=== PATIENT | female | born 1975 | race Caucasian/White ===

== ENCOUNTER → 2020-12-24 | Outpatient (CLI) | payer MEDICAID ==
[2020-12-24 18:48] LABS: Basophils # (A) 0.06 X 10*3/uL (0.00-0.10); Basophils % (A) 0.8 %; Eosinophils # (A) 0.11 X 10*3/uL (0.04-0.35); Eosinophils % (A) 1.6 %; HCT 42.8 % (37.2-46.3); HGB 13.9 g/dL (12.0-15.0); Lymphocytes # (A) 2.88 X 10*3/uL (0.90-5.00); Lymphocytes % (A) 40.7 %; MCH 27.8 pg (27.0-32.0); MCHC 32.5 g/dL (32.0-37.0); MCV 85.6 fL (80.0-97.0); Mean Platelet Volume 10.3 fL (9.5-12.2); Monocytes # (A) 0.59 X 10*3/uL (0.20-1.00); Monocytes % (A) 8.3 %; Neutrophils # (A) 3.43 X 10*3/uL (1.80-7.70); Neutrophils % (A) 48.5 %; Platelet Count 332 X 10*3/uL (140-440); RDW 12.4 % (11.5-14.5); WBC 7.08 X 10*3/uL (4.50-10.00)
[2020-12-24 23:22] LABS: African American GFR (CKD) 129.4 (60.0-200.0); Albumin 4.2 g/dL (3.80-4.90); Albumin/Globulin Ratio 1.5 (1.60-3.17); Anion Gap 10.3 mmol/L (4.00-12.00); BUN/Creat Ratio 16.67 Ratio (12.00-20.00); Calcium 8.7 mg/dL (8.7-10.3); Carbon Dioxide 23.7 mmol/L (21.6-31.8); Chol/HDL Ratio 3.53; Globulin 2.8 g/dL (1.6-3.3); Non-African American GFR(CKD) 111.6 (60.0-200.0); Potassium 3.8 mmol/L (3.5-5.5); Total Bilirubin 0.5 mg/dL (0.3-1.2)
== END | disposition home or self-care (01) ==
LOC: LABWHC1 11:57
PROVIDERS: ATTEND Internal Medicine
DX: Z00.00 Encounter for general adult medical examination without abnormal findings (principal)
CPT/HCPCS: 36415; 80053; 80061; 84443; 85025

== ENCOUNTER 2021-01-26 19:14 | Emergency (ER) | payer MEDICAID ==
[2021-01-26 19:26] VITALS: TEMP 98.3
[2021-01-26] MEDS ORDERED: SODIUM CHLORIDE 0.9% 500 ML 500 ML IV STA (20:09)
--- NOTE | 2021-01-26 20:21 | ED ---
General Adult HPI - General Chief complaint: Neuro Symptoms/Deficit Stated complaint: Numbness of face/tongue Time Seen by Provider: 01/26/21 19:57 Source: patient, RN notes reviewed Mode of arrival: wheelchair Limitations: no limitations - History of Present Illness Initial comments: 45-year-old female presents to the emergency room for a chief complaint of facial numbness. Patient reports she has had right-sided facial numbness and tongue numbness for the past 11 hours. States this started at 9 AM. Patient states that she also has pain in the back of her head and neck and does have a history of migraines although this numbness is not typical for her. She thought maybe a migraine was coming on. Patient states she "feels weird" in her right arm but it does not feel weak or numb. Patient denies any difficulty speaking. Denies any difficulty walking. 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 Patient denies any daily medications. Denies chest pain back pain or shortness of breath.Patient has no other complaints at this time including shortness of breath, chest pain, abdominal pain, nausea or vomiting, or visual changes. - Related Data Home Medications Medication Instructions Recorded Confirmed Cetirizine HCl [Zyrtec] 10 mg PO DAILY 01/26/21 01/26/21 Allergies Allergy/AdvReac Type Severity Reaction Status Date / Time sulfamethoxazole Allergy Unknown Verified 01/26/21 21:27 [From Bactrim] trimethoprim [From Bactrim] Allergy Unknown Verified 01/26/21 21:27 Review of Systems ROS Statement: Those systems with pertinent positive or pertinent negative responses have been documented in the HPI. ROS Other: All systems not noted in ROS Statement are negative. Past Medical History Past Medical History: No Reported History History of Any Multi-Drug Resistant Organisms: None Reported Past Surgical History: Orthopedic Surgery Additional Past Surgical History / Comment(s): LEFT KNEE SURGERY Past Psychological History: No Psychological Hx Reported Smoking Status: Never smoker Past Alcohol Use History: Occasional Past Drug Use History: None Reported General Exam Limitations: no limitations General appearance: alert, in no apparent distress Head exam: Present: atraumatic, normocephalic, normal inspection Eye exam: Present: normal appearance, PERRL, EOMI. Absent: scleral icterus, conjunctival injection, periorbital swelling ENT exam: Present: normal exam, mucous membranes moist Neck exam: Present: normal inspection, tenderness (Right-sided cervical muscle tenderness), full ROM. Absent: meningismus, lymphadenopathy Respiratory exam: Present: normal lung sounds bilaterally. Absent: respiratory distress, wheezes, rales, rhonchi, stridor Cardiovascular Exam: Present: regular rate, normal rhythm, normal heart sounds. Absent: systolic murmur, diastolic murmur, rubs, gallop, clicks GI/Abdominal exam: Present: soft, normal bowel sounds. Absent: distended, tenderness, guarding, rebound, rigid Neurological exam: Present: alert, oriented X3, normal gait, other (GCS 15) Expanded Patient oriented to: Present: person, place, time Speech: Present: fluid speech Cranial nerves: EOM's Intact: Normal, Tongue Deviation: Normal, Facial Sensation: Normal Cerebellar function: Finger to Nose: Normal Upper motor neuron: Pronator Drift: Normal Sensory exam: Upper Extremity Light Touch: Normal (No drift), Upper Extremity Pin Prick: Normal (No drift), Lower Extremity Light Touch: Normal (No drift), Lower Extremity Pin Prick: Normal (No drift) Motor strength exam: RUE: 5, LUE: 5, RLE: 5, LLE: 5 Eye Response: (4) open spontaneously Motor Response: (6) obeys commands Verbal Response: (5) oriented [place] Total: 15 Course Vital Signs 01/26/21 19:23 Temperature 98.3 F Pulse Rate 91 Respiratory 16 Rate Blood Pressure 142/82 O2 Sat by Pulse 100 Oximetry - Reevaluation(s) Reevaluation #1: 01/26/211999 patient also visualized and examined by Dr. Littlejohn EKG Findings - EKG Comments: EKG Findings:: Normal sinus rhythm, ventricular rate 91, VT interval 150, QTc 442 Medical Decision Making - Medical Decision Making Vitals are stable. No focal neurologic deficits on exam. NIH is 0. Patient does have reproducible right-sided neck pain. Patient also evaluated by Dr. Littlejohn. CBC CMP is unremarkable. Troponin is negative. EKG shows a normal sinus rhythm. CT angios head and neck was obtained which was negative. Patient reevaluated. No worsening of symptoms. At this time no focal neurologic deficits and patient is stable for outpatient follow-up. This could be related to cervical radiculopathy or, clicks migraine patient does have a headache and pain in the low head and neck. She will follow up primary care. If she has any worsening symptoms she'll return to the emergency room. - Lab Data Result diagrams: 01/26/21 20:17 01/26/21 20:17 Lab Results 01/26/21 01/26/21 01/26/21 Range/Units 20:17 20:17 20:17 WBC 11.7 H (3.8-10.6) k/uL RBC 5.50 H (3.80-5.40) m/uL Hgb 15.8 (11.4-16.0) gm/dL Hct 47.1 H (34.0-46.0) % MCV 85.6 (80.0-100.0) fL MCH 28.8 (25.0-35.0) pg MCHC 33.6 (31.0-37.0) g/dL RDW 12.1 (11.5-15.5) % Plt Count 338 (150-450) k/uL MPV 7.4 Neutrophils % 65 % Lymphocytes % 25 % Monocytes % 5 % Eosinophils % 2 % Basophils % 1 % Neutrophils # 7.7 (1.3-7.7) k/uL Lymphocytes # 3.0 (1.0-4.8) k/uL Monocytes # 0.6 (0-1.0) k/uL Eosinophils # 0.2 (0-0.7) k/uL Basophils # 0.1 (0-0.2) k/uL PT 11.2 (9.0-12.0) sec INR 1.1 (<1.2) APTT 23.3 (22.0-30.0) sec Sodium 141 (137-145) mmol/L Potassium 3.6 (3.5-5.1) mmol/L Chloride 103 (98-107) mmol/L Carbon Dioxide 25 (22-30) mmol/L Anion Gap 13 mmol/L BUN 10 (7-17) mg/dL Creatinine 0.58 (0.52-1.04) mg/dL Est GFR (CKD-EPI)AfAm >90 (>60 ml/min/1.73 sqM) Est GFR (CKD-EPI)NonAf >90 (>60 ml/min/1.73 sqM) Glucose 119 H (74-99) mg/dL Calcium 9.6 (8.4-10.2) mg/dL Total Bilirubin 0.4 (0.2-1.3) mg/dL AST 27 (14-36) U/L ALT 21 (4-34) U/L Alkaline Phosphatase 91 (38-126) U/L Troponin I (0.000-0.034) ng/mL Total Protein 8.0 (6.3-8.2) g/dL Albumin 4.7 (3.5-5.0) g/dL 01/26/21 Range/Units 20:17 WBC (3.8-10.6) k/uL RBC (3.80-5.40) m/uL Hgb (11.4-16.0) gm/dL Hct (34.0-46.0) % MCV (80.0-100.0) fL MCH (25.0-35.0) pg MCHC (31.0-37.0) g/dL RDW (11.5-15.5) % Plt Count (150-450) k/uL MPV Neutrophils % % Lymphocytes % % Monocytes % % Eosinophils % % Basophils % % Neutrophils # (1.3-7.7) k/uL Lymphocytes # (1.0-4.8) k/uL Monocytes # (0-1.0) k/uL Eosinophils # (0-0.7) k/uL Basophils # (0-0.2) k/uL PT (9.0-12.0) sec INR (<1.2) APTT (22.0-30.0) sec Sodium (137-145) mmol/L Potassium (3.5-5.1) mmol/L Chloride (98-107) mmol/L Carbon Dioxide (22-30) mmol/L Anion Gap mmol/L BUN (7-17) mg/dL Creatinine (0.52-1.04) mg/dL Est GFR (CKD-EPI)AfAm (>60 ml/min/1.73 sqM) Est GFR (CKD-EPI)NonAf (>60 ml/min/1.73 sqM) Glucose (74-99) mg/dL Calcium (8.4-10.2) mg/dL Total Bilirubin (0.2-1.3) mg/dL AST (14-36) U/L ALT (4-34) U/L Alkaline Phosphatase (38-126) U/L Troponin I <0.012 (0.000-0.034) ng/mL Total Protein (6.3-8.2) g/dL Albumin (3.5-5.0) g/dL Disposition Clinical Impression: Paresthesia Disposition: HOME SELF-CARE Condition: Good Instructions (If sedation given, give patient instructions): Paresthesia (ED) Additional Instructions: Please follow-up with your primary care provider. If you having worsening symptoms return to the emergency room. Is patient prescribed a controlled substance at d/c from ED?: No Referrals: Dung Foreman MD [Primary Care Provider] - 1-2 days Time of Disposition: 22:59
[2021-01-26 20:54] LABS: Basophils # (A) 0.1 k/uL (0-0.2); Basophils % (A) 1 %; Eosinophils # (A) 0.2 k/uL (0-0.7); Eosinophils % (A) 2 %; HCT 47.1 % (34.0-46.0); HGB 15.8 gm/dL (11.4-16.0); Lymphocytes % (A) 25 %; MCH 28.8 pg (25.0-35.0); MCHC 33.6 g/dL (31.0-37.0); MCV 85.6 fL (80.0-100.0); Mean Platelet Volume 7.4; Monocytes # (A) 0.6 k/uL (0-1.0); Monocytes % (A) 5 %; Neutrophils # (A) 7.7 k/uL (1.3-7.7); Neutrophils % (A) 65 %; Platelet Count 338 k/uL (150-450); RDW 12.1 % (11.5-15.5); WBC 11.7 k/uL (3.8-10.6)
[2021-01-26 21:02] LABS: ALT 21 U/L (4-34); AST 27 U/L (14-36); African American GFR (CKD) >90 (>60 ml/min/1.73 sqM); Albumin 4.7 g/dL (3.5-5.0); Alkaline Phosphatase 91 U/L (38-126); Anion Gap 13 mmol/L; Blood Urea Nitrogen 10 mg/dL (7-17); Calcium 9.6 mg/dL (8.4-10.2); Carbon Dioxide 25 mmol/L (22-30); Chloride 103 mmol/L (98-107); Glucose 119 mg/dL (74-99); Non-African American GFR(CKD) >90 (>60 ml/min/1.73 sqM); Potassium 3.6 mmol/L (3.5-5.1); Sodium 141 mmol/L (137-145); Total Bilirubin 0.4 mg/dL (0.2-1.3)
[2021-01-26 21:20] LABS: INR 1.1 (<1.2); Partial Thromboplastin Time 23.3 sec (22.0-30.0); Prothrombin Time 11.2 sec (9.0-12.0)
--- NOTE | 2021-01-26 21:36 | CT ---
EXAMINATION TYPE: CT angio head neck DATE OF EXAM: 01/26/2021 COMPARISON: None HISTORY: c/o facial numbness CT DLP: 471.4 mGycm Automated exposure control for dose reduction was used. CONTRAST: Performed with IV Contrast, patient injected with 65cc mL of Isovue 370. Images obtained from the aortic arch to the vertex of the brain with IV contrast and 3-D post process ed images. FINDINGS: There is normal branching pattern of the great vessels on the aortic arch. There is bilateral arteria l flow in the subclavian arteries. There is arterial flow in the common internal and external carotid arteries bilaterally. There is wide patency of the carotid artery bifurcations. There is arterial fl ow in both vertebral arteries. There is no evidence of carotid or vertebral artery aneurysm or dissec tion. There is arterial flow in the anterior middle and posterior cerebral arteries. There is no evidence o f intracranial aneurysm or neovascularity. There is no mass effect. I see no evidence of intracranial arterial stenosis. There is normal enhancement of the venous sinuses. There is no mass effect. There is arterial flow in the vertebrobasilar artery system. IMPRESSION: Negative CT angiogram of the neck. Negative CT angiogram of the brain.
--- NOTE | 2021-01-26 22:20 | XR ---
EXAMINATION TYPE: XR chest 2V DATE OF EXAM: 01/26/2021 COMPARISON: NONE HISTORY: Altered mental status TECHNIQUE: 2 views FINDINGS: Heart and mediastinum are normal. Lungs are clear. Diaphragm is normal. Bony thorax appears normal. IMPRESSION: Normal chest
[2021-01-26 23:25] VITALS: BP 125/87; PULSE 87; RESP 17
== END 2021-01-26 23:25 | disposition home or self-care (01) ==
LOC: EC 19:14
DX: R20.2 Paresthesia of skin (principal); R51.9 Headache, unspecified; M54.2 Cervicalgia; Z88.1 Allergy status to other antibiotic agents; Z88.2 Allergy status to sulfonamides
CPT/HCPCS: 36415; 93005; 80053; 84484; 85025; 85610; 85730; 71046; 70496; 70498; 99284; 96360; Q9967

== ENCOUNTER 2021-01-27 13:09 | Observation (INO) | payer MEDICAID ==
--- NOTE | 2021-01-27 13:44 | ED ---
General Adult HPI - General Chief complaint: Neuro Symptoms/Deficit Stated complaint: revisit - rt sided facial/arm numbness, weakness Time Seen by Provider: 01/27/21 13:19 Source: patient Mode of arrival: wheelchair Limitations: no limitations - History of Present Illness Initial comments: Dictation was produced using [employer] dictation software. please excuse any grammatical, word or spelling errors. Chief Complaint: 45-year-old female seen here yesterday for right-sided sensory deficit History of Present Illness: 45-year-old female she was seen here in emergency department yesterday. Patient yesterday was seen in the emergency department for complaint of facial numbness. She was evaluated yesterday and NIH was 0. She was thought to have right-sided neck pain secondary to cervical radiculopathy. Patient works as a physical therapist. She has a lot of family members in the medical field. Patient denies any fever, chills or night sweats. This morning she noted that her symptoms were progressively worsened. She went to see her primary doctor ordered an MRI and and prescribed patient a steroid Dosepak. States that her symptoms are worse. She noticed that her facial weakness is worse. The ROS documented in this emergency department record has been reviewed and confirmed by me. Those systems with pertinent positive or negative responses have been documented in the HPI. All other systems are other negative and/or noncontributory. PHYSICAL EXAM: General Impression: Alert and oriented x3, not in acute distress HEENT: Normocephalic atraumatic, extra-ocular movements intact, pupils equal and reactive to light bilaterally, mucous membranes moist. Cardiovascular: Heart regular rate and rhythm Chest: Able to complete full sentences, no retractions, no tachypnea Abdomen: abdomen soft, non-tender, non-distended, no organomegaly Musculoskeletal: Pulses present and equal in all extremities, no peripheral edema Motor: no focal deficits noted Neurological: Lingular deviation to the left, facial weakness to the upper and lower face, she does complain of sensory deficit to pain, light touch to the right side of her body except her feet. No clonus, no hyperreflexia, no rigidity Skin: Intact with no visualized rashes Psych: Normal affect and mood ED course: 45-year-old female presents with right-sided focal neurologic deficits. Vital Signs upon arrival are within acceptable limits. Chart review was performed. Patient had a CT angios the head and neck which was found to be unremarkable. She also had a chest x-ray that was negative. She had negative labs yesterday. Case is discussed with neurologist gem stone cutter Dr. Fritz who will evaluate patient and make recommendations. The patient would benefit from inpatient admission due to more urgent workup and neurologic evaluation. Patient admitted admitted to Dr. Jimenez who is willing to accept patients care. - Related Data Home Medications Medication Instructions Recorded Confirmed Cetirizine HCl [Zyrtec] 10 mg PO DAILY 01/26/21 01/26/21 Allergies Allergy/AdvReac Type Severity Reaction Status Date / Time adhesive Allergy Unknown Verified 01/27/21 13:14 latex Allergy Unknown Verified 01/27/21 13:14 sulfamethoxazole Allergy Unknown Verified 01/27/21 13:14 [From Bactrim] trimethoprim [From Bactrim] Allergy Unknown Verified 01/27/21 13:14 Review of Systems ROS Statement: Those systems with pertinent positive or pertinent negative responses have been documented in the HPI. ROS Other: All systems not noted in ROS Statement are negative. Past Medical History Past Medical History: No Reported History History of Any Multi-Drug Resistant Organisms: None Reported Past Surgical History: Orthopedic Surgery Additional Past Surgical History / Comment(s): LEFT KNEE SURGERY Past Psychological History: No Psychological Hx Reported Smoking Status: Never smoker Past Alcohol Use History: Occasional Past Drug Use History: None Reported General Exam Limitations: no limitations Course Vital Signs 01/27/21 01/27/21 13:15 14:02 Temperature 97.4 F L 98.5 F Pulse Rate 86 76 Respiratory 20 18 Rate Blood Pressure 140/85 129/80 O2 Sat by Pulse 100 Oximetry Disposition Clinical Impression: Focal neurological deficit Disposition: ADMITTED IP TO THIS HOSP Condition: Fair Referrals: Dung Foreman MD [Primary Care Provider] - 1-2 days
[2021-01-27] MEDS ORDERED: NALOXONE 0.4 MG/ML 1 ML VIAL IV PRN (14:12)
[2021-01-27] MEDS ORDERED: SODIUM CHLORIDE 0.9% 1,000 ML IV SCH (14:15)
--- NOTE | 2021-01-27 18:12 | P.CNNES ---
History of Present Illness Consult date: 01/27/21 Requesting physician: Francisco Kwong Reason for Consult: Focal neurological deficit History of Present Illness: Patient is a 45-year-old female came to the hospital today at 1:09 PM. for worsening right facial weakness. Patient has initially presented to the ER yesterday with right facial numbness. She was at work yesterday when she noted numbness of right side of the tongue. Shortly after she noticed some numb s ensation involving right side of the face in the jaw region. Also had a right retroauricular pain over the mastoid, which she never had before. She does have migraine but this was different. She came to the ER at 6:30 PM where she underwent computed tomography scan of the head, with CTA of head and neck which were all normal. Patient was observed, and was recommended to follow up with her primary physician, and discharged 11:30 PM. At night she did notice some difficulty with movement of the right side of the face, and some numbness of right arm region. This morning she woke up and was getting ready and felt her right side of the face was getting worse. Also noticed some numbness of the right side of the body including face arm and leg with midline splitting. She excused from work. She saw her primary physician, who prescribed her Medrol Dosepak and recommended to go to ER if her symptoms worsens. While she was at the pharmacy getting Medrol Dosepak, she felt symptoms were getting worse, as she was having difficulty walking tandem with walking with right foot in front of the left. She therefore decided to come to the ER. She denies any slurred speech, although she is concentrating when talking, as she feels she had undergone novocaine shot by the dentist. She feels some blurred vision on the right. She feels some heaviness in the right arm but no weakness. She also noticed some difficulty swallowing related to numbness on the right side. Patient has noticed some metallic taste in her mouth since yesterday. Denies hyperacusis or loss of hearing. No vertigo. CTA of head and neck performed yesterday was normal. Vital signs on arrival blood pressure 140/85, pulse rate 86, temperature 97.4. Patient had a CTA of head and neck performed yesterday which was normal. EKG shows normal sinus rhythm, chest x-ray normal. Blood test shows WBC 11.7 hemoglobin 15.8, normal platelets. PT/PTT normal, Chem-20 normal. TSH normal. Cholesterol 180, LDL 118, HDL 51 and triglycerides 55. Patient only takes Zyrtec 10 mg. Patient denies diabetes, or hypertension. Denies any tobacco, never smoked does not drink alcohol. 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 Multiple family members on her father's side had cancers. 2 uncles with GBM. Denies any recent head or neck injury in the last 6 months. 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 Her symptoms lasted for several weeks and then went away. Patient denies any episodes of numbness or optic neuritis. She does have some neck and back issues therefore gets numbness rated to her spine. Patient does not take any control pills. Review of Systems As above in detail. All other review of systems unremarkable. Denies chest pain. Denies vertigo at this time. She has some difficulty walking because of right leg numbness. No nausea vomiting diarrhea. No fever or chills. No history of optic neuritis. No history of numbness except for her lately to some back and neck issues. Past Medical History Past Medical History: No Reported History History of Any Multi-Drug Resistant Organisms: None Reported Past Surgical History: Orthopedic Surgery Additional Past Surgical History / Comment(s): LEFT KNEE SURGERY Past Psychological History: No Psychological Hx Reported Smoking Status: Never smoker Past Alcohol Use History: Occasional Past Drug Use History: None Reported Medications and Allergies Home Medications Medication Instructions Recorded Confirmed Type Cetirizine HCl [Zyrtec] 10 mg PO DAILY 01/26/21 01/27/21 History Allergies Allergy/AdvReac Type Severity Reaction Status Date / Time adhesive Allergy Unknown Verified 01/27/21 14:55 latex Allergy Unknown Verified 01/27/21 14:55 sulfamethoxazole Allergy Unknown Verified 01/27/21 14:55 [From Bactrim] trimethoprim [From Bactrim] Allergy Unknown Verified 01/27/21 14:55 Physical Examination - Vital Signs Vital Signs: Vital Signs Temp Pulse Resp BP Pulse Ox 01/27/21 15:30 77 18 117/79 100 01/27/21 14:02 98.5 F 76 18 129/80 01/27/21 13:15 97.4 F L 86 20 140/85 100 Intake and Output 01/27/21 01/27/21 01/27/21 06:59 14:59 22:59 Other: Weight 86.046 kg Patient is a middle aged female, in no acute distress. Patient is alert awake oriented to time place and person. Speech and language functions are normal. No aphasia or dysarthria. Attention, concentration and fund of knowledge is adequate. On cranial examination, pupils are round and reacting to light, visual [place] are full on confrontation with no neglect, extraocular muscles are intact with no nystagmus. Patient has right facial weakness, peripheral type. tongue protrudes slightly to the left of the midline. Palatal elevation and sensation normal, hearing and shoulder shrug normal, facial sensations revealed decreased fine touch and temperature on right side of the face. On muscle strength testing, there is mild right upper pronation, no drift. Her overall muscle strength is normal in arms and legs distally and proximally. Deep tendon reflexes are (right/left) biceps 1+/2+, and brachioradialis 1+/2+, knee 2/2, ankles 1/1 and plantars are flat bilaterally. Sensory to touch is decreased in the right arm and leg. However the temperature for cold sensation she was feeling decreased on the contralateral side, involving the left arm and leg. Cerebellar function showed no ataxia for [id number] testing. No ataxia for [id number] testing. No dysdiadochokinesia. Tone and bulk of muscles normal. Gait not checked. On general examination, there is no carotid bruit or murmur, S1-S2 audible. Abdomen is soft nontender. Chest is clear. Peripheral pulses are present. No edema. Assessment and Plan Assessment: * Right facial weakness, peripheral type. Patient also has retro-articular headache, suggestive of Garcia's palsy. However patient also has significant numbness of the entire right side of the body, with difficulty walking tandem because of right leg numbness. Rule out demyelinating disease like MS. 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 Plan: * MRI of the brain with and without contrast rule out MS or demyelinating disease. CVA less likely. Localization is possibly in the brainstem, due to evidence of crossed findings and right facial peripheral weakness. * B12, folate, MMA, MARGARITA, Sjogren's antibodies. * Further management based upon above test results.
[2021-01-27] MEDS ORDERED: ASPIRIN 81 MG PO STA (18:45)
--- NOTE | 2021-01-27 19:42 | CT ---
EXAMINATION TYPE: CT brain wo con DATE OF EXAM: 01/27/2021 COMPARISON: None HISTORY: left sided facial numbness CT DLP: 1084.4 mGycm Automated exposure control for dose reduction was used. Exam performed with no contrast. Ventricles and sulci appear normal. There is no mass effect nor midline shift. There is no sign of in tracranial hemorrhage. The calvarium is intact there is normal aeration of the mastoid sinuses. IMPRESSION: Negative unenhanced head CT scan.
[2021-01-28 06:02] LABS: Folate, Serum 19.6 ng/mL
[2021-01-28 07:38] VITALS: BP 116/77; PULSE 78; RESP 17; TEMP 98.1
--- NOTE | 2021-01-28 11:15 | P.HPIM ---
History of Present Illness H&P Date: 01/28/21 HISTORY AND PHYSICAL AND DISCHARGE SUMMARY: HISTORY OF PRESENT ILLNESS This is a 45-year-old female patient of Dr. Foreman with a history of migraine headaches, seasonal ALLERGIES, scoliosis, osteoarthritis of the back. Patient states that she developed right-sided weakness in her face while she was working. Patient states that her vision is not affected, no double vision. She does have a lazy eye on the right and is a little harder to focus then normal. She is complaining of pain behind her right ear that goes down into the side of her neck with decreased sensation on the right side of her face and body. Headache is different than her migraine headaches. She can move everything with full range of motion and no loss of strength. Onset was sudden while she was working. She did receive Covid vaccine in August and September. She ended up going to the emergency center on January 26 and underwent CAT angiogram of the head and neck which were negative and patient was discharged home. She saw her PCP yesterday who and was advised to come into the hospital for further evaluation on 01/27. CAT scan of the brain was negative. Patient placed on the observation unit and has been seen by neurology and patient is being worked up to rule out demyelinating disease like MS. MRI of the brain is ordered for today and patient has been started on high-dose Solu-Medrol. Lab work reveals WBC 11.7, hemoglobin 14.8, platelet count 338. Electrolytes renal function and liver function tests were all normal. Troponin normal. Blood sugar 119. Vitamin B12 6 or 58. Vitamin D 25-hydroxy 33.1. Folate 19.6. MARGARITA screen is negative. SS- A and SS-B antibody negative. Treponema pallidum antibody nonreactive. Methylmalonic acid and protein electrophoresis, immunofixation are pending. Patient underwent MRI of the brain that showed normal findings. Dr. Fritz has advised treatment for right Garcia's palsy with Valtrex 1 g 3 times daily for 7 days, prednisone 60 mg daily for 7 days then decrease by 10 mg every day until off and follow-up with neurologist in 1-2 weeks. She will be discharged home today in stable condition. REVIEW OF SYSTEMS Constitutional: No fever, no chills, no night sweats. No weight change. No weakness, fatigue or lethargy. No daytime sleepiness. EENT: Reports headache. No blurred vision or double vision, no loss of vision. No loss of Hearing, no ringing in the ears, no dizziness. No nasal drainage or congestion. No epistaxis. No sore throat. Lungs: No shortness of breath, cough, no sputum production. No wheezing. Cardiovascular: No chest pain, no lower extremity edema. No palpitations. No paroxysmal nocturnal dyspnea. No orthopnea. No lightheadedness or dizziness. No syncopal episodes. Abdominal: No abdominal pain. No nausea, vomiting. No diarrhea. No constipa tion. No bloody or tarry stools.. No loss of appetite. Genitourinary: No dysuria, increased frequency, urgency. No urinary retention. Musculoskeletal: No myalgias. No muscle weakness, no gait dysfunction, no frequent falls. No back pain. No neck pain. Integumentary: No wounds, no lesions. No rash or pruritus. No unusual bruising. No change in hair or nails. Neurologic: No aphasia. Reported facial droop. No change in mentation. No head injury. Reported headache. No paralysis. Right-sided weakness. Psychiatric: No depression. No anxiety. No mood swings. Endocrine: No abnormal blood sugars. No weight change. No excessive sweating or thirst. No cold intolerance. SOCIAL HISTORY He is a lifelong nonsmoker, rare alcohol use, no illicit drug use. 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 FAMILY HISTORY Mother is alive with history of hypertension. Father is alive with history of Alzheimer's dementia, CVA and post cerebral artery stenosis. Patient has 2 sisters and one has history of breast cancer and with his history of asthma. Patient's 1 brother with no major medical problems. Patient does not have any children. Patient has a paternal aunt with history of MS and 2 paternal uncles with history of glioblastoma's. PHYSICAL EXAMINATION Gen: This is a 45-year-old female. She is resting in bed appears to be comfortable and in no acute distress. HEENT: Head is atraumatic, normocephalic. Pupils equal, round. Sclerae is anicteric. NECK: Supple. No JVD. No lymphadenopathy. No thyromegaly. LUNGS: Clear to auscultation. No wheezes or rhonchi. No intercostal retractions. HEART: Regular rate and rhythm. No murmur. ABDOMEN: Soft. Bowel sounds are present. No masses. No tenderness. EXTREMITIES: No pedal edema. No calf tenderness. NEUROLOGICAL: Patient is awake, alert and oriented x3. Deep tendon reflexes normal. Strength 5/5 bilateral upper and lower extremities. Touch sensation decreased to the right arm and leg. Tongue deviated to the left. ASSESSMENT AND PLAN 1. Right facial weakness, rule out demyelinating disease. Neurology consult appreciated, MRI of the brain scheduled for today. Methylmalonic acid and protein electrophoresis, immunofixation are pending. Continue IV Solu-Medrol 500 mg every 12 hours. 2. Right sided retro-articular headache. 3. History migraine headaches, stable. 4. Seasonal ALLERGIES. 5. Scoliosis. 6. GI prophylaxis. Protonix 40 mg daily. 7. DVT prophylaxis. Early ambulation. Patient placed as observation status. DISCHARGE PLAN Home. Impression and plan of care have been directed as dictated by the signing physician. Mamta Glez nurse practitioner acting as scribe for signing physician. Past Medical History Past Medical History: No Reported History History of Any Multi-Drug Resistant Organisms: None Reported Past Surgical History: Orthopedic Surgery Additional Past Surgical History / Comment(s): LEFT KNEE SURGERY Past Anesthesia/Blood Transfusion Reactions: No Reported Reaction Past Psychological History: No Psychological Hx Reported Smoking Status: Never smoker Past Alcohol Use History: Occasional Past Drug Use History: None Reported Medications and Allergies Home Medications Medication Instructions Recorded Confirmed Type Cetirizine HCl [Zyrtec] 10 mg PO DAILY 01/26/21 01/27/21 History Pantoprazole [Protonix] 40 mg PO LINWOOD-HOMERKFST #30 tablet. 01/28/21 Rx predniSONE [Deltasone] 20 mg PO DAILY #29 tab 01/28/21 Rx valACYclovir HCL [Valtrex] 1,000 mg PO TID #21 tablet 01/28/21 Rx Allergies Allergy/AdvReac Type Severity Reaction Status Date / Time adhesive Allergy Unknown Verified 01/27/21 14:55 latex Allergy Unknown Verified 01/27/21 14:55 sulfamethoxazole Allergy Unknown Verified 01/27/21 14:55 [From Bactrim] trimethoprim [From Bactrim] Allergy Unknown Verified 01/27/21 14:55 Physical Exam Vitals: Vital Signs Temp Pulse Pulse Resp BP BP Pulse Ox 01/28/21 07:00 98.1 F 78 17 116/77 97 01/28/21 02:10 97.5 F L 93 18 103/71 01/28/21 02:00 93 18 01/27/21 22:55 65 114/61 01/27/21 20:53 98 01/27/21 18:19 84 18 116/81 88 L 01/27/21 15:30 77 18 117/79 100 01/27/21 14:02 98.5 F 76 18 129/80 01/27/21 13:15 97.4 F L 86 20 140/85 100 Intake and Output 01/27/21 01/28/21 01/28/21 22:59 06:59 14:59 Other: Voiding Method Toilet # Voids 1 Weight 86.046 kg Thrombosis Risk Factor Assmnt - Choose All That Apply Any of the Below Risk Factors Present?: Yes Each Factor Represents 1 point: Age 41-60 years Other Risk Factors: No Other congenital or acquired thrombophilia - If yes, enter type in comment: No Thrombosis Risk Factor Assessment Total Risk Factor Score: 1 Thrombosis Risk Factor Assessment Level: Low Risk
[2021-01-28] MEDS ORDERED: valACYclovir HCL 1,000 MG TABLET PO SCH (11:45)
--- NOTE | 2021-01-28 12:02 | MR ---
EXAMINATION TYPE: MR brain wo/w con DATE OF EXAM: 01/28/2021 COMPARISON: CT brain 01/27/2021 HISTORY: RT Side numbness, rt facial weakness, r/o ms CONTRAST: Performed utilizing 8.5 mL intravenous Gadavist gadolinium contrast. TECHNIQUE: Multiplanar, multiecho imaging on a 3.0 Funmilayo magnet is performed through the brain. Stud y is performed within 24 hours of arrival to the hospital. The craniovertebral junction is normal. The pituitary is normal. Diffusion-weighted imaging is performed. No abnormal hyperintensity is present to suggest an acute i ntracranial infarct or acute ischemic change. No signal abnormality is evident within the brain. No abnormal enhancement is evident. No suspicious white matter plaques are evident Ventricles and sulci are appropriate for the patient age. IMPRESSIONS: 1. Normal pre and postcontrast MRI brain.
[2021-01-28 12:11] LABS: Glucose,Whole Blood 207 mg/dL (75-99)
[2021-01-28] MEDS ORDERED: INSULIN ASPART (NovoLOG) 100 UNIT/ML VIAL SQ SCH (12:30)
--- NOTE | 2021-01-28 12:45 | P.PN ---
Subjective Progress Note Date: 01/28/21 Patient is feeling much better. Continues to have right facial weakness, peripheral type. The numbness of the right side of the body has improved. Objective - Vital Signs Vital signs: Vital Signs Temp 98.1 F 01/28/21 07:00 Pulse 78 01/28/21 07:00 Resp 17 01/28/21 07:00 BP 116/77 01/28/21 07:00 Pulse Ox 97 01/28/21 07:00 Intake & Output 01/27/21 01/28/21 01/28/21 18:59 06:59 18:59 Intake Total 180 Balance 180 Weight 86.046 kg Intake: Oral 180 Other: Voiding Method Toilet # Voids 1 - Exam Patient's mental status, speech and language functions are normal. Cranial nerves significant for right facial weakness, peripheral type. Tongue protrudes slightly to the left. Pupils are round and reacting, visual moulton are full, extraocular muscles are intact with no nystagmus. Facial sensation decreased on the right. On muscle strength testing there is no drift and the strength is normal. No ataxia. Sensations are still slightly decreased in the right arm and right leg. - Labs Labs: Abnormal Lab Results - Last 24 Hours (Table) 01/28/21 Range/Units 12:02 POC Glucose (mg/dL) 207 H (75-99) mg/dL Assessment and Plan Assessment: * Right Garcia's palsy. MRI of the brain with and without contrast revealed no evidence of acute stroke, or demyelinating disease. No enhancing lesion. 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 Plan: * MRI of the brain with and without contrast is normal. No evidence of acute stroke or demyelinating disease like MS. * At present it appears patient has right Garcia's palsy. Recommend prednisone 60 mg daily for 7 days and then decrease by 10 mg every day until off. * Valtrex 1 g 3 times a day for 7 days. * B12 658, folate 19.6, vitamin D 33.1 normal. MARGARITA negative. Sjogren's antibodies negative. Lyme titer negative, MMA <0.10, SPEP and LAURA showed no monoclonal gammopathy. * Neurologically clear for discharge with the above recommendations. Suggest follow up with local neurologist in 1-2 weeks.
[2021-01-29 04:02] LABS: Protein, Total 7.7 g/dL (6.2-8.2)
[2021-01-29] MEDS ORDERED: PANTOPRAZOLE 40 MG TABLET PO SCH (07:30)
[2021-01-30 14:06] LABS: Albumin 4.18 g/dL (3.80-4.90); Gamma Globulin 1.36 g/dL (0.70-1.50)
== END 2021-01-28 13:52 | disposition home or self-care (01) ==
LOC: EC 13:09 → 1SOBS 14:37 → 6NMEDSUR 15:13
PROVIDERS: ADMIT Family Medicine; ATTEND Family Medicine
DX: G51.0 Bell's palsy (principal); G43.909 Migraine, unspecified, not intractable, without status migrainosus; J30.2 Other seasonal allergic rhinitis; M41.9 Scoliosis, unspecified; R13.10 Dysphagia, unspecified; Z79.899 Other long term (current) drug therapy; Z80.8 Family history of malignant neoplasm of other organs or systems; Z82.0 Family history of epilepsy and other diseases of the nervous system; Z82.3 Family history of stroke; Z82.49 Family history of ischemic heart disease and other diseases of the circulatory system; Z82.5 Family history of asthma and other chronic lower respiratory diseases
CPT/HCPCS: 96365; 99285; 83921; 82607; 82746; 86618; 84165; 82306; 86780; 86038; 86235; 86334; 70450; 70553; G0378 ×2; J2930; A9585; 93005

== ENCOUNTER → 2021-01-27 | Outpatient (CLI) | payer MEDICAID ==
[2021-01-27 21:24] LABS: C Reactive Protein 0.4 mg/dL (0.0-0.8)
== END | disposition home or self-care (01) ==
LOC: LABWHC1 11:29
PROVIDERS: ATTEND Internal Medicine
DX: R20.2 Paresthesia of skin (principal)
CPT/HCPCS: 36415; 82607; 84443; 85652; 86038; 86140

== ENCOUNTER → 2021-02-05 | Outpatient (CLI) | payer MEDICAID ==
--- NOTE | 2021-02-05 13:54 | MR ---
MRI CERVICAL SPINE: CLINICAL HISTORY: Headaches and Right-sided arm weakness since injury January 26, 2021. TECHNIQUE: Multiplanar, multisequence imaging of the cervical spine is performed without and with IV contrast, 8.5 cc of gadolinium was given intravenously. Comparison: CT brain January 27, 2021. FINDINGS: Sagittal images of the cervical spine show the craniocervical junction to appear within nor mal limits. The cervical and upper thoracic spinal cord is normal in course, caliber, and signal. V ertebral alignment is anatomic. The vertebral body and intravertebral disk heights are normal. The bone marrow signal intensity is within normal limits. No suspicious postcontrast enhancement. Axial images show C2-C3 through C4-C5 levels to appear within normal limits. Axial images at C5-C6 level broad-based left paracentral disc protrusion effacing the anterolateral t hecal sac and causing moderate left-sided neural foraminal narrowing near axial image 24, patent righ t-sided neural foramina noted. Axial images at C6-C7 level show smaller focal left paracentral/foraminal disc protrusion mildly effa cing anterolateral thecal sac and causing mild left-sided neural foraminal narrowing. Axial images at C7-T1 level appear within normal limits. IMPRESSION: Disc herniations C5-C6 and C6-C7 level noted as detailed above. No significant right-side d herniation identified.
== END | disposition home or self-care (01) ==
LOC: RADMRIMAIN 12:11
PROVIDERS: ATTEND Psychiatry & Neurology Neurology
DX: G81.91 Hemiplegia, unspecified affecting right dominant side (principal); M50.222 Other cervical disc displacement at C5-C6 level; M50.223 Other cervical disc displacement at C6-C7 level
CPT/HCPCS: 72156; A9585

== ENCOUNTER → 2021-02-06 | Outpatient (CLI) | payer MEDICAID ==
--- NOTE | 2021-02-10 08:24 | MM ---
Reason for exam: screening (asymptomatic). Last mammogram was performed 3 years and 3 months ago. History: Patient is nulliparous. Family history of breast cancer in sister, breast cancer in 2 aunts, and breast cancer in grandmother. Physical Findings: A clinical breast exam by your physician is recommended on an annual basis and results should be correlated with mammographic findings. MG 3D Screening Mammo W/Cad Bilateral CC and MLO view(s) were taken. Prior study comparison: November 11, 2017, mammogram, performed at [facility]. No significant changes when compared with prior studies. ASSESSMENT: Benign, BI-RAD 2 RECOMMENDATION: Routine screening mammogram of both breasts in 1 year.
== END | disposition home or self-care (01) ==
LOC: RADMAMWWP 14:13
PROVIDERS: ATTEND Internal Medicine
DX: Z12.39 Encounter for other screening for malignant neoplasm of breast (principal); Z80.3 Family history of malignant neoplasm of breast
CPT/HCPCS: 77063; 77067

== ENCOUNTER 2021-06-05 07:01 | Day surgery (SDC) | payer MEDICAID ==
[~2021-06-05 07:01] MED LIST: LACTATED RINGERS 1,000 ML IV SCH
[2021-06-05 07:25] VITALS: RESP 16; TEMP 96.3
[2021-06-05] MEDS ORDERED: LIDOCAINE 1% (10MG/ML) FOR IV START INTRADERMA ONE (07:49)
[2021-06-05] MEDS ORDERED: LIDOCAINE 1% INJ 10MG/ML (20 ML MDV) ONE (08:04)
[2021-06-05] MEDS ORDERED: PROPOFOL 10 MG/ML 20 ML VIAL IV ONE (08:04)
--- NOTE | 2021-06-05 08:43 | P.PCN ---
Date of Procedure: 06/05/21 Procedure(s) Performed: BRIEF HISTORY: Patient is a 45-year-old pleasant white female scheduled for an elective colonoscopy as a part of screening for colorectal neoplasia. She has family history of colon cancer diagnosed in her uncle and first cousin on the same side of the family in the 40s and 50s respectively. PROCEDURE PERFORMED: Colonoscopy. PREOPERATIVE DIAGNOSIS: Screening for colon cancer/family history of colon cancer. IV sedation per Anesthesia. PROCEDURE: After informed consent was obtained, the patient, was brought into the endoscopy unit. IV sedation was administered by Anesthesia under continuous monitoring. Digital rectal examination was normal. Initially the Olympus CF-160 flexible video colonoscope was then inserted in the rectum, gradually advanced into the cecum without any difficulty. Careful examination was performed as the scope was gradually being withdrawn. Ileocecal valve and the appendiceal orifice were visualized and appeared normal. Prep was excellent. Mucosa of the cecum, ascending colon, transverse colon, descending colon, sigmoid colon, and rectum appeared normal. Retroflexion was performed in the rectum and no lesions were seen. The patient tolerated the procedure well. IMPRESSION: Normal-appearing colon from rectum to cecum with no evidence of colorectal neoplasia. RECOMMENDATIONS: Findings of this examination were discussed with the patient as well as her family. She was advised to have a repeat screening colonoscopy in 10 years..
[2021-06-05 08:46] VITALS: BP 103/70; PULSE 70
== END 2021-06-05 09:01 | disposition home or self-care (01) ==
LOC: ORWHC2ENDO 07:01
PROVIDERS: ATTEND Internal Medicine Gastroenterology
DX: Z12.11 Encounter for screening for malignant neoplasm of colon (principal); Z88.2 Allergy status to sulfonamides; Z91.040 Latex allergy status; Z79.899 Other long term (current) drug therapy; Z80.0 Family history of malignant neoplasm of digestive organs
CPT/HCPCS: 81025; 45378; J2001; J2704

== ENCOUNTER → 2022-02-06 | Outpatient (CLI) | payer MEDICAID ==
--- NOTE | 2022-02-06 17:26 | MR ---
EXAMINATION TYPE: MR shoulder LT wo con DATE OF EXAM: 02/06/2022 COMPARISON: None HISTORY: Left shoulder pain. Multiplanar multiecho imaging of the left shoulder with no contrast. The biceps tendon is intact. Subscapularis tendon appears normal. The glenoid magnolia appear normal. The supraspinatus tendon is intact. The infraspinatus tendon is intact. AC joint is intact. No subacr omial impingement. No evidence of focal bone destruction. No sign of a fracture. Scapula appears inta ct. IMPRESSION: Negative MR scan of the left shoulder. No evidence of rotator cuff tear.
== END | disposition home or self-care (01) ==
LOC: RADMRIMAIN 11:33
PROVIDERS: ATTEND Physician Assistant
DX: M25.512 Pain in left shoulder (principal)

== ENCOUNTER 2022-06-07 09:23 | Observation (INO) | payer MEDICAID ==
[2022-06-07] MEDS ORDERED: SODIUM CHLORIDE 0.9% 1,000 ML IV STA (09:36)
[2022-06-07 09:55] LABS: Basophils # (A) 0.1 k/uL (0-0.2); Basophils % (A) 1 %; Eosinophils # (A) 0.1 k/uL (0-0.7); Eosinophils % (A) 1 %; HCT 45.4 % (34.0-46.0); HGB 15.3 gm/dL (11.4-16.0); Lymphocytes # (A) 2.3 k/uL (1.0-4.8); Lymphocytes % (A) 25 %; MCH 27.8 pg (25.0-35.0); MCHC 33.6 g/dL (31.0-37.0); MCV 82.8 fL (80.0-100.0); Mean Platelet Volume 7.8; Monocytes # (A) 0.4 k/uL (0-1.0); Monocytes % (A) 5 %; Neutrophils # (A) 5.9 k/uL (1.3-7.7); Neutrophils % (A) 67 %; Platelet Count 395 k/uL (150-450); RBC 5.49 m/uL (3.80-5.40); RDW 12.1 % (11.5-15.5); WBC 8.9 k/uL (3.8-10.6)
[2022-06-07 10:08] LABS: INR 1.1 (<1.2); Partial Thromboplastin Time 22.9 sec (22.0-30.0); Prothrombin Time 11.4 sec (9.0-12.0)
[2022-06-07 10:17] LABS: ALT 32 U/L (4-34); AST 30 U/L (14-36); African American GFR (CKD) >90 (>60 ml/min/1.73 sqM); Albumin 4.4 g/dL (3.5-5.0); Alkaline Phosphatase 76 U/L (38-126); Anion Gap 14 mmol/L; Blood Urea Nitrogen 9 mg/dL (7-17); Calcium 9.4 mg/dL (8.4-10.2); Carbon Dioxide 22 mmol/L (22-30); Chloride 105 mmol/L (98-107); Glucose 131 mg/dL (74-99); Magnesium 1.6 mg/dL (1.6-2.3); Non-African American GFR(CKD) >90 (>60 ml/min/1.73 sqM); Potassium 3.8 mmol/L (3.5-5.1); Sodium 141 mmol/L (137-145); Total Bilirubin 0.6 mg/dL (0.2-1.3); Total Protein 7.8 g/dL (6.3-8.2)
--- NOTE | 2022-06-07 10:20 | XR ---
EXAMINATION TYPE: XR chest 2V DATE OF EXAM: 06/07/2022 COMPARISON: 01/26/2021 HISTORY: Chest pain TECHNIQUE: Frontal and lateral views of the chest are obtained. FINDINGS: There is no focal air space opacity. No evidence for pneumothorax. No pleural effusion. The cardiac silhouette size is within normal limits. The osseous structures are grossly intact. IMPRESSION: 1. No acute cardiopulmonary process.
--- NOTE | 2022-06-07 10:56 | ED ---
Arrhythmia/Palpitations HPI - General Chief Complaint: Arrhythmia/Palpitations Stated Complaint: r/o PE Time Seen by Provider: 06/07/22 09:33 Source: patient, RN notes reviewed Mode of arrival: ambulatory Limitations: no limitations - History of Present Illness Initial Comments: 46-year-old female presents emergency Department chief complaint palpitations, shortness breath. Patient states started having cold like symptoms on Thanksgiving states that she tested positive for the weekend. Patient states that she developed increasing shortness breath a day, palpitations. Patient called her primary care physician advises come emergency department for evaluation. Patient is concerned about possible PE. She states she has mild chest tightness denies any sharp stabbing pain. Patient states her symptoms are worse with exertion denies leg pain or leg swelling. Patient denies any prior cardiac disease no prior pulmonary disease. - Related Data Home Medications Medication Instructions Recorded Confirmed guaiFENesin SYRUP 100MG/5ML 200 mg PO Q6H PRN 06/07/22 06/07/22 [Robitussin] Allergies Allergy/AdvReac Type Severity Reaction Status Date / Time adhesive Allergy Rash/Hives Verified 06/07/22 10:34 latex Allergy Rash/Hives Verified 06/07/22 10:34 sulfamethoxazole Allergy Unknown Verified 06/07/22 10:34 [From Bactrim] trimethoprim [From Bactrim] Allergy Unknown Verified 06/07/22 10:34 Review of Systems ROS Statement: Those systems with pertinent positive or pertinent negative responses have been documented in the HPI. ROS Other: All systems not noted in ROS Statement are negative. 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23, History of Any Multi-Drug Resistant Organisms: None Reported Past Surgical History: Orthopedic Surgery Additional Past Surgical History / Comment(s): LEFT KNEE SURGERY Past Anesthesia/Blood Transfusion Reactions: No Reported Reaction Past Psychological History: No Psychological Hx Reported Smoking Status: Never smoker Past Alcohol Use History: None Reported Past Drug Use History: None Reported General Exam Limitations: no limitations General appearance: alert, in no apparent distress Head exam: Present: atraumatic, normocephalic, normal inspection Eye exam: Present: normal appearance, PERRL, EOMI. Absent: scleral icterus, conjunctival injection, periorbital swelling ENT exam: Present: normal exam, normal oropharynx, mucous membranes moist Neck exam: Present: normal inspection, full ROM. Absent: tenderness, meningismus, lymphadenopathy Respiratory exam: Present: normal lung sounds bilaterally. Absent: respiratory distress, wheezes, rales, rhonchi, stridor Cardiovascular Exam: Present: normal rhythm, tachycardia, normal heart sounds. Absent: systolic murmur, diastolic murmur, rubs, gallop, clicks GI/Abdominal exam: Present: soft, normal bowel sounds. Absent: distended, tenderness, guarding, rebound, rigid Neurological exam: Present: alert Skin exam: Present: warm, dry, intact, normal color. Absent: rash Course Vital Signs 06/07/22 06/07/22 06/07/22 09:27 10:30 10:40 Temperature 98.5 F Pulse Rate 140 H 100 80 Respiratory 24 18 Rate Blood Pressure 125/85 120/81 O2 Sat by Pulse 100 95 Oximetry 06/07/22 11:00 Temperature Pulse Rate 110 H Respiratory Rate Blood Pressure O2 Sat by Pulse 97 Oximetry EKG Findings - EKG Comments: EKG Findings:: EKG performed at 9:36 sinus tachycardia rate of 119 LA 154 QRS 82 QT/QTC 339/410 - EKG Results: EKG: interpreted by ES Medical Decision Making - Medical Decision Making 46-year-old female presented from for exertional dyspnea, tachycardia. Patient has exertional dyspnea has been persistent she has had recent COVID-19 d-dimer was negative though patient son concerning symptoms for PE CT was obtained no acute findings. Patient ambulated in within short distance develops exertional dyspnea, tachycardia heart rate 140s. Patient will be admitted for echocardiogram, cardiac evaluation. - Lab Data Result diagrams: 06/07/22 09:41 06/07/22 09:41 Lab Results 06/07/22 06/07/22 06/07/22 Range/Units 09:41 09:41 09:41 WBC 8.9 (3.8-10.6) k/uL RBC 5.49 H (3.80-5.40) m/uL Hgb 15.3 (11.4-16.0) gm/dL Hct 45.4 (34.0-46.0) % MCV 82.8 (80.0-100.0) fL MCH 27.8 (25.0-35.0) pg MCHC 33.6 (31.0-37.0) g/dL RDW 12.1 (11.5-15.5) % Plt Count 395 (150-450) k/uL MPV 7.8 Neutrophils % 67 % Lymphocytes % 25 % Monocytes % 5 % Eosinophils % 1 % Basophils % 1 % Neutrophils # 5.9 (1.3-7.7) k/uL Lymphocytes # 2.3 (1.0-4.8) k/uL Monocytes # 0.4 (0-1.0) k/uL Eosinophils # 0.1 (0-0.7) k/uL Basophils # 0.1 (0-0.2) k/uL PT 11.4 (9.0-12.0) sec INR 1.1 (<1.2) APTT 22.9 (22.0-30.0) sec D-Dimer 0.38 (<0.60) mg/L FEU Sodium 141 (137-145) mmol/L Potassium 3.8 (3.5-5.1) mmol/L Chloride 105 (98-107) mmol/L Carbon Dioxide 22 (22-30) mmol/L Anion Gap 14 mmol/L BUN 9 (7-17) mg/dL Creatinine 0.62 (0.52-1.04) mg/dL Est GFR (CKD-EPI)AfAm >90 (>60 ml/min/1.73 sqM) Est GFR (CKD-EPI)NonAf >90 (>60 ml/min/1.73 sqM) Glucose 131 H (74-99) mg/dL Calcium 9.4 (8.4-10.2) mg/dL Magnesium 1.6 (1.6-2.3) mg/dL Total Bilirubin 0.6 (0.2-1.3) mg/dL AST 30 (14-36) U/L ALT 32 (4-34) U/L Alkaline Phosphatase 76 (38-126) U/L Troponin I (0.000-0.034) ng/mL Total Protein 7.8 (6.3-8.2) g/dL Albumin 4.4 (3.5-5.0) g/dL TSH 0.497 (0.465-4.680) mIU/L 06/07/22 Range/Units 09:41 WBC (3.8-10.6) k/uL RBC (3.80-5.40) m/uL Hgb (11.4-16.0) gm/dL Hct (34.0-46.0) % MCV (80.0-100.0) fL MCH (25.0-35.0) pg MCHC (31.0-37.0) g/dL RDW (11.5-15.5) % Plt Count (150-450) k/uL MPV Neutrophils % % Lymphocytes % % Monocytes % % Eosinophils % % Basophils % % Neutrophils # (1.3-7.7) k/uL Lymphocytes # (1.0-4.8) k/uL Monocytes # (0-1.0) k/uL Eosinophils # (0-0.7) k/uL Basophils # (0-0.2) k/uL PT (9.0-12.0) sec INR (<1.2) APTT (22.0-30.0) sec D-Dimer (<0.60) mg/L FEU Sodium (137-145) mmol/L Potassium (3.5-5.1) mmol/L Chloride (98-107) mmol/L Carbon Dioxide (22-30) mmol/L Anion Gap mmol/L BUN (7-17) mg/dL Creatinine (0.52-1.04) mg/dL Est GFR (CKD-EPI)AfAm (>60 ml/min/1.73 sqM) Est GFR (CKD-EPI)NonAf (>60 ml/min/1.73 sqM) Glucose (74-99) mg/dL Calcium (8.4-10.2) mg/dL Magnesium (1.6-2.3) mg/dL Total Bilirubin (0.2-1.3) mg/dL AST (14-36) U/L ALT (4-34) U/L Alkaline Phosphatase (38-126) U/L Troponin I <0.012 (0.000-0.034) ng/mL Total Protein (6.3-8.2) g/dL Albumin (3.5-5.0) g/dL TSH (0.465-4.680) mIU/L Disposition Clinical Impression: Exertional dyspnea, Tachycardia Disposition: ADMITTED IP TO THIS HOSP Referrals: Dung Foreman MD [Primary Care Provider] - 1-2 days Time of Disposition: 12:29
[2022-06-07] MEDS ORDERED: SODIUM CHLORIDE 0.9% 1,000 ML IV ONE (11:19)
--- NOTE | 2022-06-07 12:16 | CT ---
EXAMINATION TYPE: CT chest angio for PE CT DLP: 460.9 mGycm, Automated exposure control for dose reduction was used. DATE OF EXAM: 06/07/2022 11:43 AM COMPARISON: Chest radiograph from same day. CLINICAL INDICATION:Female, 46 years old with history of Tachycardia, exertional dyspnea; SOB, VARIED HEART RATE TECHNIQUE/CONTRAST: CTA scan of the thorax is performed with IV Contrast, patient injected with 100 mL of Isovue 370, pul monary embolism protocol. MIP images are created and reviewed. FINDINGS: Pulmonary Artery: There is no evidence for a filling defect within the pulmonary vasculature to sugge st acute pulmonary embolism. The pulmonary artery is of normal size. Lungs/Pleura: No evidence of focal consolidation, pleural effusion or pneumothorax. Airway: Large airways are patent. Heart: Heart is within normal limits for size.. Vasculature: No evidence of aortic aneurysm. Mediastinum: No gross evidence of adenopathy. Musculoskeletal: No acute osseous abnormalities Soft Tissues: Unremarkable. Lower neck: No significant findings. Upper Abdomen: No significant findings. IMPRESSION: No evidence of pulmonary embolism.
[2022-06-07] MEDS ORDERED: NITROGLYCERIN SL TABS 0.4 MG TAB SUBLINGUAL PRN (12:29)
[2022-06-07] MEDS: guaiFENesin-DM 100-10MG/5ML 10 ML CUP PO PRN (19:54)
[2022-06-08] MEDS ORDERED: ALBUTEROL NEBULIZED 2.5 MG/3 ML INHALATION PRN (00:35)
--- NOTE | 2022-06-08 00:48 | P.HPIM ---
History of Present Illness H&P Date: 06/07/22 Chief Complaint: SOB Patient is a 46-year-old female with no significant past medical history presents to ER with complaints of exertional dyspnea and heart racing fast. Patient states that she started having cold-like symptoms on and was tested positive for COVID-19 infection during that weekend. Since then she has been having worsening shortness of breath and exertional dyspnea and heart rate continues to be at 100 and resting up to 130s at home. She is also complaining of chest tightness and sharp pains and unable to take deep breath.. Denies any leg swelling. No fever no chills. No nausea vomiting abdominal pain or diarrhea. Patient was seen by her primary care physician and advised to go to ER.. Chest x-ray showed no acute cardiopulmonary process EKG showed sinus tachycardia CT angiogram of the chest showed no evidence of PE. No evidence of focal consolidation, pleural effusion or pneumothorax. Laboratory data showed WBC 8.9 hemoglobin 14.3 and platelets 395 D-dimer 0.38 TSH 0.497, troponin x3 negative liver enzymes are not elevated. Magnesium is 1.6 and calcium 9.4. Sodium 141 potassium 3.8, BUN 9 and creatinine 0.62 Pulse ox 96% on room air. Review of Systems Constitutional: Patient denies any fever or chills . No generalized weakness or weight loss. Abdomen: Patient denied nausea vomiting and diarrhea and abdominal pain. Cardiovascular: Patient denies any chest pain patient does have short of breath and palpitations. No leg swelling. Respiratory: patient does have cough with no sputum production.. Positive for shortness of breath Neurologic: Patient denied any numbness or tingling headache. Musculoskeletal: Patient denies any complaints of joint swelling or deformity. Skin: Negative Psychiatric: Negative Endocrine: No heat or cold intolerance. No recent weight gain. Genitourinary: No dysuria or hematuria. 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23, History of Any Multi-Drug Resistant Organisms: None Reported Past Surgical History: Orthopedic Surgery Additional Past Surgical History / Comment(s): LEFT KNEE SURGERY Past Anesthesia/Blood Transfusion Reactions: No Reported Reaction Past Psychological History: No Psychological Hx Reported Smoking Status: Never smoker Past Alcohol Use History: None Reported Past Drug Use History: None Reported Medications and Allergies Home Medications Medication Instructions Recorded Confirmed Type guaiFENesin SYRUP 100MG/5ML 200 mg PO Q6H PRN 06/07/22 06/07/22 History [Robitussin] Allergies Allergy/AdvReac Type Severity Reaction Status Date / Time adhesive Allergy Rash/Hives Verified 06/07/22 10:34 latex Allergy Rash/Hives Verified 06/07/22 10:34 sulfamethoxazole Allergy Unknown Verified 06/07/22 10:34 [From Bactrim] trimethoprim [From Bactrim] Allergy Unknown Verified 06/07/22 10:34 Physical Exam Vitals: Vital Signs Temp Pulse Resp BP Pulse Ox 06/07/22 11:00 110 H 97 06/07/22 10:40 80 06/07/22 10:30 100 18 120/81 95 06/07/22 09:27 98.5 F 140 H 24 125/85 100 Intake and Output 06/06/22 06/07/22 06/07/22 22:59 06:59 14:59 Other: Weight 88.451 kg PHYSICAL EXAMINATION: Patient is lying in the bed comfortably, no acute distress, awake alert and oriented.. HEENT: Normocephalic. Neck is supple. Pupils reactive. Nostrils clear. Oral cavity is moist. Neck reveals no JVD, carotid bruits, or thyromegaly. CHEST EXAMINATION: Trachea is central. Symmetrical expansion. Minimal scattered rhonchi and no wheezing.. nonlabored breathing. CARDIAC: Normal S1, S2 with no gallops. No murmurs ABDOMEN: Soft. Bowel sounds normal. No organomegaly. No abdominal bruits. Extremities: reveal no edema. No clubbing or cyanosis Neurologically awake, alert, oriented x3 with well-coordinated movements. No focal deficits noted Skin: No rash or skin lesions. Psychiatric: Cooperative. Nonsuicidal Musculoskeletal: No joint swelling or deformity. Normal range of motion. Results CBC & Chem 7: 06/07/22 09:41 06/07/22 09:41 Labs: Abnormal Lab Results - Last 24 Hours (Table) 06/07/22 06/07/22 Range/Units 09:41 09:41 RBC 5.49 H (3.80-5.40) m/uL Glucose 131 H (74-99) mg/dL Thrombosis Risk Factor Assmnt - DVT/VTE Prophylaxis DVT/VTE Prophylaxis: Pharmacologic Prophylaxis ordered Assessment and Plan Assessment: Exertional dyspnea and palpitations. Ruled out ACS. No evidence of PE on CTA chest. D-dimer not elevated. Possible reactive bronchospasm COVID-19 infection. Diagnosed 8 days back Sinus tachycardia Hypomagnesemia 1.6 replaced. DVT prophylaxis Lovenox subcu Plan: Patient will be continued on telemetry monitoring. Symptomatic management of cough and replace magnesium. Albuterol inhaler 2 puffs every 6 hourly as needed for shortness of breath and cardiology evaluation due to exertional dyspnea. Time with Patient: Greater than 30
[2022-06-08] MEDS: MAGNESIUM SULFATE-D5W PMX 1 GM in DEXTROSE/WATER 1 100ML.BAG IVPB SCH ×2 (01:46→02:53)
[2022-06-08] MEDS: guaiFENesin-DM 100-10MG/5ML 10 ML CUP PO PRN (01:46)
[2022-06-08] MEDS: ENOXAPARIN 40 MG/0.4 ML SYRINGE SQ SCH (09:33)
[2022-06-08 09:36] LABS: African American GFR (CKD) 136.4 (60.0-200.0); Anion Gap 11.2 mmol/L (10.00-18.00); BUN/Creat Ratio 11.2 Ratio (12.00-20.00); Blood Urea Nitrogen 5.6 mg/dL (9.0-27.0); Calcium 8.3 mg/dL (8.7-10.3); Carbon Dioxide 22.8 mmol/L (20.0-27.5); Non-African American GFR(CKD) 117.7 (60.0-200.0); Potassium 4.2 mmol/L (3.5-5.5)
--- NOTE | 2022-06-08 10:55 | P.CRDCN ---
History of Present Illness Consult date: 06/08/22 History of present illness: History of present illness: This is a 45-year-old female with no significant past medical history. 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 Patient complains of having Covid and stayed home from work for one week. She states she went back to work yesterday and she felt her heart was racing and she felt dizzy. She felt her heart was racing fast but not irregular. She also had some sweats. No nausea. She denies ever having symptoms like this before. She denies any symptoms at the time of evaluation. EKG is sinus tachycardia at 119 bpm, repeat EKG is sinus rhythm at 74 bpm no acute changes. CTA of the chest negative for pulmonary embolism. Troponin negative 3 draws, CBC and CMP unremarkable. TSH 0.497. Review Of Systems: At the time of my evaluation: Constitutional: No fever, no chills. No weakness, fatigue or lethargy. EENT: No headache. No dizziness. Lungs: No shortness of breath, cough, no sputum production. No wheezing. Cardiovascular: No chest pain, no lower extremity edema. No palpitations. No paroxysmal nocturnal dyspnea. No orthopnea. No lightheadedness or dizziness. No syncopal episodes. Abdominal: No abdominal pain. No nausea, vomiting. No diarrhea. No constipation. No bloody or tarry stools.. No loss of appetite. Genitourinary: No dysuria.. No urinary retention. Musculoskeletal: No myalgias. No muscle weakness, no gait dysfunction, no frequent falls. No back pain. No neck pain. Integumentary: No wounds, no lesions. No rash or pruritus. No unusual bruising. Neurologic: No aphasia. No facial droop. No change in mentation. No head injury. No headache. No paralysis. No paresthesia. Psychiatric: No depression. No anxiety. Endocrine: No abnormal blood sugars. Physical examination: Gen: This is a 46-year-old female, resting in bed and appears to be comfortable VS: Reviewed HEENT: Head is atraumatic, normocephalic. Pupils equal, round. Sclerae is anicteric. NECK: Supple. No JVD. No lymphadenopathy. No thyromegaly. LUNGS: Clear to auscultation. No wheezes or rhonchi. No intercostal retractions. HEART: Regular rate and rhythm. No murmur. ABDOMEN: Soft. Bowel sounds are present. No masses. No tenderness. EXTREMITIES: No pedal edema. No calf tenderness. NEUROLOGICAL: Patient is awake, alert and oriented x3. Cranial nerves 2 through 12 are grossly intact. Assessment: Tachycardia most likely secondary to recent Covid infection Acute cardiac syndrome has been ruled out Plan: Obtain orthostatic vital signs Obtain 2-D echocardiogram and Doppler study to assess cardiac structure and function Further recommendations to follow based upon clinical course Thank you kindly for this consultation. Nurse practitioner note has been reviewed, I agree with documented findings and plan of care. Patient was seen and examined. 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23, History of Any Multi-Drug Resistant Organisms: None Reported Past Surgical History: Orthopedic Surgery Additional Past Surgical History / Comment(s): LEFT KNEE SURGERY Past Anesthesia/Blood Transfusion Reactions: No Reported Reaction Past Psychological History: No Psychological Hx Reported Smoking Status: Never smoker Past Alcohol Use History: None Reported Past Drug Use History: None Reported Medications and Allergies Home Medications Medication Instructions Recorded Confirmed Type guaiFENesin SYRUP 100MG/5ML 200 mg PO Q6H PRN 06/07/22 06/07/22 History [Robitussin] Allergies Allergy/AdvReac Type Severity Reaction Status Date / Time adhesive Allergy Rash/Hives Verified 06/07/22 10:34 latex Allergy Rash/Hives Verified 06/07/22 10:34 sulfamethoxazole Allergy Unknown Verified 06/07/22 10:34 [From Bactrim] trimethoprim [From Bactrim] Allergy Unknown Verified 06/07/22 10:34 Physical Exam Vitals: Vital Signs Temp Pulse Pulse Resp BP BP Pulse Ox 06/08/22 07:00 97.6 F 74 16 123/85 99 06/08/22 00:00 98.1 F 85 18 124/90 100 06/07/22 19:54 83 16 121/93 100 06/07/22 15:11 98.3 F 90 20 126/89 96 06/07/22 11:00 110 H 97 06/07/22 10:40 80 06/07/22 10:30 100 18 120/81 95 06/07/22 09:27 98.5 F 140 H 24 125/85 100 Intake and Output 06/07/22 06/08/2206/08/22 22:59 06:59 14:59 Other: Voiding Method Toilet # Voids 2 Weight 88.451 kg Results 06/07/22 09:41 06/08/22 05:34 Cardiac Enzymes 06/07/22 06/07/22 06/07/22 Range/Units 09:41 09:41 14:11 AST 30 (14-36) U/L Troponin I <0.012 <0.012 (0.000-0.034) ng/mL 06/07/22 Range/Units 17:40 AST (14-36) U/L Troponin I <0.012 (0.000-0.034) ng/mL Coagulation 06/07/22 Range/Units 09:41 PT 11.4 (9.0-12.0) sec APTT 22.9 (22.0-30.0) sec CBC 06/07/22 Range/Units 09:41 WBC 8.9 (3.8-10.6) k/uL RBC 5.49 H (3.80-5.40) m/uL Hgb 15.3 (11.4-16.0) gm/dL Hct 45.4 (34.0-46.0) % Plt Count 395 (150-450) k/uL Comprehensive Metabolic Panel 06/07/22 Range/Units 09:41 Sodium 141 (137-145) mmol/L Potassium 3.8 (3.5-5.1) mmol/L Chloride 105 (98-107) mmol/L Carbon Dioxide 22 (22-30) mmol/L BUN 9 (7-17) mg/dL Creatinine 0.62 (0.52-1.04) mg/dL Glucose 131 H (74-99) mg/dL Calcium 9.4 (8.4-10.2) mg/dL AST 30 (14-36) U/L ALT 32 (4-34) U/L Alkaline Phosphatase 76 (38-126) U/L Total Protein 7.8 (6.3-8.2) g/dL Albumin 4.4 (3.5-5.0) g/dL Current Medications Generic Name Dose Route Start Last Admin Trade Name Freq PRN Reason Stop Dose Admin Albuterol Sulfate 2.5 mg 06/08/22 00:35 Albuterol Nebulized 2.5 Mg/3 Ml INHALATION RT-QID PRN Shortness Of Breath Or Wheezing Enoxaparin Sodium 40 mg 06/08/22 09:00 Enoxaparin 40 Mg/0.4 Ml Syringe SQ DAILY MICHELINE Guaifenesin/Dextromethorphan 10 ml 06/07/22 18:52 06/08/22 01:46 Guaifenesin-Dm 100-10mg/5ml 10 Ml Cup PO 10 ml Q6HR PRN Administration Cough Nitroglycerin 0.4 mg 06/07/22 12:29 Nitroglycerin Sl Tabs 0.4 Mg Tab SUBLINGUAL Q5M PRN Chest Pain Intake and Output 06/07/22 06/08/22 06/08/22 22:59 06:59 14:59 Other: Voiding Method Toilet # Voids 2 Weight 88.451 kg 06/07/22 09:41 06/07/22 09:41
--- NOTE | 2022-06-08 20:17 | P.PN ---
Subjective Progress Note Date: 06/08/22 Patient is a 46-year-old female with no significant past medical history presents to ER with complaints of exertional dyspnea and heart racing fast. Patient states that she started having cold-like symptoms on and was tested positive for COVID-19 infection during that weekend. Since then she has been having worsening shortness of breath and exertional dyspnea and heart rate continues to be at 100 and resting up to 130s at home. She is also complaining of chest tightness and sharp pains and unable to take deep breath.. Denies any leg swelling. No fever no chills. No nausea vomiting abdominal pain or diarrhea. Patient was seen by her primary care physician and advised to go to ER.. Chest x-ray showed no acute cardiopulmonary process EKG showed sinus tachycardia CT angiogram of the chest showed no evidence of PE. No evidence of focal consolidation, pleural effusion or pneumothorax. Laboratory data showed WBC 8.9 hemoglobin 14.3 and platelets 395 D-dimer 0.38 TSH 0.497, troponin x3 negative liver enzymes are not elevated. Magnesium is 1.6 and calcium 9.4. Sodium 141 potassium 3.8, BUN 9 and creatinine 0.62 Pulse ox 96% on room air. 06/08/2022 Patient is seen today in follow up and continues to report shortness of breath with minimal exertion and being followed by cardiology. Patient is scheduled to undergo 2d echo and is pending. Patient denies chest pain or shortness of breath. Patient is continued on lovenox and albuterol inhaler. Patient was recently positive for covid. CTA was negative. Afebrile. Requesting to go home. Awaiting cardiac clearance. Review of systems: Constitutional: No reports of fatigue, fever, or chills Cardiovascular: No reports of chest pain or palpitations Respiratory: reports of shortness of breath with exertion GI: No reports of nausea, vomiting, or diarrhea : No reports of dysuria or retention Neurovascular: no reports of weakness Physical Exam: Patient is sitting up in the bed comfortably, no acute distress, awake alert and oriented.. HEENT: Normocephalic. Neck is supple. Pupils reactive. Nostrils clear. Oral cavity is moist. Neck reveals no JVD, carotid bruits, or thyromegaly. CHEST EXAMINATION: Trachea is central. Symmetrical expansion. Minimal scattered rhonchi and no wheezing.. non-labored breathing. CARDIAC: Normal S1, S2 with no gallops. No murmurs ABDOMEN: Soft. Bowel sounds normal. No organomegaly. No abdominal bruits. Extremities: reveal no edema. No clubbing or cyanosis Neurologically awake, alert, oriented x3 with well-coordinated movements. No focal deficits noted Skin: No rash or skin lesions. Psychiatric: Cooperative. Non-suicidal Musculoskeletal: No joint swelling or deformity. Normal range of motion. Assessment: Exertional dyspnea and palpitations. Ruled out ACS. No evidence of PE on CTA chest. D-dimer not elevated. Possible reactive bronchospasm COVID-19 infection. Diagnosed 8 days back Sinus tachycardia Hypomagnesemia, 1.6 replaced. DVT prophylaxis Lovenox subq Plan: Patient will be continued on telemetry monitoring. Symptomatic management of cough and continue with lovenox and albuterol. Cardiology following and 2d echo is ordered and pending. CTA ruled out of PE. Patient encouraged to increase activity as tolerated Awaiting 2d echo to be done and apparently delayed due to not having enough staff. Possible discharge in 24 hours. The impression and plan of care has been dictated by nurse janice Barker as directed. MD Gauri I have performed a history and examination and MDM of this patient, discussed the same with the dictator, and agree with the dictator's assessment and plan as written ,documented as a scribe. Based on total visit time, I have performed more than 50% of the visit. Objective - Vital Signs Vital signs: Vital Signs Temp 97.6 F 06/08/22 07:00 Pulse 74 06/08/22 07:00 Resp 16 06/08/22 07:00 BP 123/85 06/08/22 07:00 Pulse Ox 99 06/08/22 07:00 FiO2 Intake & Output 06/07/22 06/08/22 06/08/22 18:59 06:59 18:59 Weight 88.451 kg 88.451 kg Other: Voiding Method Toilet # Voids 2 - Labs CBC & Chem 7: 06/07/22 09:41 06/08/22 05:34 Labs: Abnormal Lab Results - Last 24 Hours (Table) 06/07/22 06/07/22 Range/Units 09:41 09:41 RBC 5.49 H (3.80-5.40) m/uL Glucose 131 H (74-99) mg/dL
[2022-06-08] MEDS ORDERED: diphenhydrAMINE 25 MG CAP PO PRN (20:27)
[2022-06-08] MEDS: diphenhydrAMINE 2% CREAM 28.4 GM TUBE TOPICAL SCH (20:41)
[2022-06-09 07:41] VITALS: BP 125/84; PULSE 83; RESP 14; TEMP 98.1
--- NOTE | 2022-06-09 09:50 | CA ---
Transthoracic Echo Report Name: Tejal Helm Age: 46 Gender: F : 1975 Exam Date: 06/08/2022 14:30 Exam Location: [facility] Ht (in): 66 Wt (lb): 195 Ordering Physician: Omar Orourke Attending/Referring Phys: [id number], [place] M[employer] Developer Kirstie Melgoza RDCS Procedure CPT: Indications: exertional dyspnea, tachycardia Cardiac Hx: Technical Quality: Fair Contrast 1: Total Dose (mL): Contrast 2: Total Dose (mL): MEASUREMENTS (Male / Female) Normal Values 2D ECHO LV Diastolic Diameter PLAX 4.4 cm 4.2 - 5.9 / 3.9 - 5.3 cm LV Systolic Diameter PLAX 2.7 cm IVS Diastolic Thickness 1.0 cm 0.6 - 1.0 / 0.6 - 0.9 cm LVPW Diastolic Thickness 1.0 cm 0.6 - 1.0 / 0.6 - 0.9 cm LV Relative Wall Thickness 0.5 RV Internal Dim ED PLAX 2.6 cm LA Volume 54.5 cm??? 18 - 58 / 22 - 52 cm??? M-MODE Aortic Root Diameter MM 2.3 cm LA Systolic Diameter MM 3.3 cm LA Ao Ratio MM 1.4 AV Cusp Separation MM 1.7 cm DOPPLER AV Peak Velocity 101.2 cm/s AV Peak Gradient 4.1 mmHg AV Mean Velocity 75.1 cm/s AV Mean Gradient 2.4 mmHg AV Velocity Time Integral 18.3 cm LVOT Peak Velocity 84.0 cm/s LVOT Peak Gradient 2.8 mmHg MV Area PHT 3.1 cm??? Mitral E Point Velocity 54.6 cm/s Mitral A Point Velocity 82.2 cm/s Mitral E to A Ratio 0.7 MV Deceleration Time 241.9 ms MV E' Velocity 8.0 cm/s Mitral E to MV E' Ratio 6.8 FINDINGS Left Ventricle Mildly increased left ventricular wall thickness. Normal left ventricular systolic function with no obvious regional wall motion abnormalities. Left ventricular ejection fraction is estimated at 55-60 %. Right Ventricle Normal right ventricular size and function. Right ventricular systolic pressure within normal limits. Right Atrium Normal right atrial size. Left Atrium Mildly increased left atrial volume. Mitral Valve Structurally normal mitral valve. Trace to mild mitral regurgitation. Aortic Valve No aortic valve stenosis or regurgitation. Tricuspid Valve Structurally normal tricuspid valve. Mild tricuspid regurgitation. Pulmonic Valve Trace pulmonic regurgitation. Pericardium No pericardial effusion. Aorta Normal size aortic root and proximal ascending aorta. CONCLUSIONS LVH with ejection fraction in the normal range of greater than 55% Previewed by: Dr. Syed Maguire MD (Electronically Signed) Final Date: 08 June 2022 16:03
[2022-06-09] MEDS: diphenhydrAMINE 2% CREAM 28.4 GM TUBE TOPICAL SCH (11:48)
[2022-06-09] MEDS: ENOXAPARIN 40 MG/0.4 ML SYRINGE SQ SCH (11:48)
--- NOTE | 2022-06-13 14:54 | P.DS ---
Providers Date of admission: 06/07/22 12:43 Expected date of discharge: 06/09/22 Attending physician: Rocael Galo MD Consults: 06/07/22 12:29 Consult Physician Urgent Consulting Provider: Jermain Carmen Consult Reason/Comments: Exertional dyspnea, tachycardia Do you want consulting provider notified?: Yes Primary care physician: Dung Foreman MD Hospital Course: Final diagnosis Exertional dyspnea and palpitations. Ruled out ACS. No evidence of PE on CTA chest. D-dimer not elevated. Possible reactive bronchospasm COVID-19 infection. Diagnosed 8 days back Sinus tachycardia Hypomagnesemia DVT prophylaxis Discharge disposition Patient is being discharged in a stable condition with guarded prognosis to home. Patient will follow-up with Dr. Myra Foreman in the outpatient setting upon discharge. Patient is to continue with an inhaler and prednisone on discharge. Recommend outpatient follow up with pulmonary for further testing. Total time taken is greater than 35 minutes. Hospital course This is a 46-year-old female who was recently admitted with increasing shortness of breath. Patient was seen by cardiology and cleared for discharge home. 2D echo was done which revealed a normal EF. Patient recently with covid and continues to report shortness of breath with exertion. Not requiring any oxygen and above 90% on room air. 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 Stongly encouraged pulmonary follow up for more PFT testing. Patient hesitant to take albuterol inhaler or prednisone on discharge. Instructed patient to follow up with primary care provider on discharge. Currently no reports of chest pain, worsening shortness of breath, or palpitations. Patient is afebrile. No reports of nausea or vomiting and patient is tolerating diet. Patient will be discharged home today. Physical exam: Gen: This is a 46 year old female who is awake, alert and oriented x3 well developed, well nourished, obese HEENT: Head is atraumatic, normocephalic. Pupils equal, round. Sclerae is anicteric. NECK: Supple. No JVD. No lymphadenopathy. No thyromegaly. LUNGS: Clear to auscultation. No wheezes or rhonchi. No intercostal retractions. HEART: Regular rate and rhythm. No murmur. ABDOMEN: Soft. Bowel sounds are present. No masses. No tenderness. EXTREMITIES: No pedal edema. No calf tenderness. NEUROLOGICAL: Patient is awake, alert and oriented x3. Cranial nerves 2 through 12 are grossly intact. Please refer to medication reconciliation sheet for a list of medications. The impression and plan of care has been dictated by Apryl Del Valle, Nurse Practitioner as directed. Dr. Alonzo MD I have performed a history and examination and MDM of this patient, discussed the same with the dictator, and agree with the dictator's assessment and plan as written ,documented as a scribe. Based on total visit time, I have performed more than 50% of the visit. Patient Condition at Discharge: Stable Plan - Discharge Summary New Discharge Prescriptions: New predniSONE 40 mg PO DIRECTED 5 Days #20 tab Albuterol Inhaler [Ventolin Hfa Inhaler] 2 puff INHALATION QID #8 gm Continue guaiFENesin SYRUP 100MG/5ML [Robitussin] 200 mg PO Q6H PRN PRN Reason: Cough Discharge Medication List guaiFENesin SYRUP 100MG/5ML [Robitussin] 200 mg PO Q6H PRN 06/07/22 [History] Albuterol Inhaler [Ventolin Hfa Inhaler] 2 puff INHALATION QID #8 gm 06/09/22 [Rx] predniSONE 40 mg PO DIRECTED 5 Days #20 tab 06/09/22 [Rx] Follow up Appointment(s)/Referral(s): Dung Foreman MD [Primary Care Provider] - 1-2 days Cecelia Amaro MD [STAFF PHYSICIAN] - 08/06/22 9:30 am Patient Instructions/Handouts: Pulmonary Embolism (DC), Dyspnea (DC), Tachycardia (GEN) Activity/Diet/Wound Care/Special Instructions: Activity is limited until follow-up Follow-up with primary care provider on discharge Recommend outpatient follow-up with pulmonary for further testing Continue using albuterol inhaler every 4-6 hours as needed If inhaler is not covered by insurance try using good Rx for better coverage Discharge Disposition: HOME SELF-CARE
== END 2022-06-09 12:03 | disposition home or self-care (01) ==
LOC: EC 09:23 → 6NMEDSUR 12:43
PROVIDERS: ADMIT Internal Medicine; ATTEND Internal Medicine
DX: R00.0 Tachycardia, unspecified (principal); R00.2 Palpitations; U07.1 COVID-19; R06.09 Other forms of dyspnea; E83.42 Hypomagnesemia; R05.9 Cough, unspecified; R42 Dizziness and giddiness; R61 Generalized hyperhidrosis; Z88.1 Allergy status to other antibiotic agents; Z91.040 Latex allergy status; Z88.2 Allergy status to sulfonamides; Z91.048 Other nonmedicinal substance allergy status; Z86.69 Personal history of other diseases of the nervous system and sense organs; Z98.890 Other specified postprocedural states
CPT/HCPCS: 96365; 96366; 96361; 99285; 36415; 93005; 93306; 85379; 80053; 80048; 84443; 83735; 84484; 85025; 85610; 85730; 71046; 71275; G0378 ×3; J3475; Q9967

== ENCOUNTER → 2022-07-09 | Outpatient (CLI) | payer MEDICAID ==
--- NOTE | 2022-07-09 12:10 | MM ---
Reason for Exam: Screening (asymptomatic). Last mammogram was performed 1 year(s) and 5 month(s) ago. Patient History: Menarche at age 14. Patient has no children. Premenopausal. Paternal grandmother had breast cancer. Paternal aunt had breast cancer. Paternal aunt had breast cancer. Paternal cousin had endometrial cancer under age 50. Sister had breast cancer, age 53. Risk Values: Anny 5 year model risk: 1.5%. NCI Lifetime model risk: 18.2%. Prior Study Comparison: 11/11/2017 Screening Mammogram, [facility]. 02/06/2021 Bilateral Screening Mammogram, [facility]. Tissue Density: There are scattered fibroglandular densities. Findings: Analyzed By CAD. Pattern appears symmetrical and stable. No significant interval change is evident No suspicious groups of microcalcifications, spiculated or lobular masses, architectural distortion or other secondary signs of malignancy are mammographically apparent. Overall Assessment: Negative, BI-RAD 1 Management: Screening Mammogram of both breasts in 1 year. A negative mammogram report should not preclude additional follow up of suspicious palpable abnormalities. Patient should continue monthly self breast exam. A clinical breast exam by your physician is recommended on an annual basis and results should be correlated with mammographic findings. Electronically signed and approved by: Rafi Yuen D.O. Radiologis
== END | disposition home or self-care (01) ==
LOC: RADMAMWWP 07:02
PROVIDERS: ATTEND Internal Medicine
DX: Z12.31 Encounter for screening mammogram for malignant neoplasm of breast (principal); Z80.3 Family history of malignant neoplasm of breast
CPT/HCPCS: 77063; 77067

== ENCOUNTER → 2023-08-05 | Outpatient (CLI) | payer OTHER ==
--- NOTE | 2023-08-09 10:26 | MM ---
Reason for Exam: Screening (asymptomatic). Last mammogram was performed 1 year(s) and 1 month(s) ago. Patient History: Menarche at age 14. Patient has no children. Premenopausal. Paternal grandmother had breast cancer. Paternal aunt had breast cancer. Paternal aunt had breast cancer. Paternal cousin had endometrial cancer under age 50. Sister had breast cancer, age 53. Last menstrual period: Risk Values: Anny 5 year model risk: 1.6%. NCI Lifetime model risk: 18.0%. Prior Study Comparison: 11/11/2017 Screening Mammogram, [facility]. 02/06/2021 Bilateral Screening Mammogram, [facility]. 07/09/2022 Bilateral MG 3D screening mammo w/cad, [facility]. Tissue Density: There are scattered fibroglandular densities. Findings: Analyzed By CAD. There is no suspicious group of microcalcifications or new suspicious mass in either breast. Overall Assessment: Negative, BI-RAD 1 Management: Screening Mammogram of both breasts in 1 year. . Patient should continue monthly self-breast exams. A clinical breast exam by your physician is recommended on an annual basis. This exam should not preclude additional follow-up of suspicious palpable abnormalities. Note on Anny scores and lifetime risk: 1. A Anny score greater than 3% is considered moderate risk. If this is the case, consider specialist referral to assess eligibility for a risk reducing agent. 2. If overall lifetime risk for the development of breast cancer is 20% or higher, the patient may qualify for future screening with alternating mammogram and breast MRI. Electronically signed and approved by: Alex Guo M.D. Radiologis
== END | disposition home or self-care (01) ==
LOC: RADMAMWWP 08:36
PROVIDERS: ATTEND Internal Medicine
DX: Z12.31 Encounter for screening mammogram for malignant neoplasm of breast (principal); Z80.3 Family history of malignant neoplasm of breast
CPT/HCPCS: 77063; 77067

== ENCOUNTER → 2024-10-05 | Outpatient (CLI) | payer OTHER ==
--- NOTE | 2024-10-05 07:48 | MM ---
Reason for Exam: Screening (asymptomatic). Last mammogram was performed 1 year(s) and 2 month(s) ago. Patient History: Menarche at age 14. Patient has no children. Premenopausal. Patient used Hormonal Contraceptives for 1 year. Paternal grandmother had breast cancer. Paternal aunt had breast cancer. Paternal aunt had breast cancer. Paternal cousin had endometrial cancer under age 50. Sister had breast cancer, age 53. Risk Values: Anny 5 year model risk: 1.7%. NCI Lifetime model risk: 17.5%. Prior Study Comparison: 02/06/2021 Bilateral Screening Mammogram, [facility]. 07/09/2022 Bilateral MG 3D screening mammo w/cad, [facility]. 08/05/2023 Bilateral MG 3D screening mammo w/cad, [facility]. Tissue Density: The breasts are heterogeneously dense, which may obscure small masses. Findings: Analyzed By CAD. There is no suspicious group of microcalcifications or new suspicious mass in either breast. Overall Assessment: Benign, BI-RAD 2 Management: Screening Mammogram of both breasts in 1 year. . Patient should continue monthly self-breast exams. A clinical breast exam by your physician is recommended on an annual basis. This exam should not preclude additional follow-up of suspicious palpable abnormalities. Note on Anny scores and lifetime risk: 1. A Anny score greater than 3% is considered moderate risk. If this is the case, consider specialist referral to assess eligibility for a risk reducing agent. 2. If overall lifetime risk for the development of breast cancer is 20% or higher, the patient may qualify for future screening with alternating mammogram and breast MRI. [facility], , 10/05/2024 7:45 AM. Electronically signed and approved by: Alex Guo M.D. Radiologis
== END | disposition home or self-care (01) ==
LOC: RADMAMWWP 07:23
PROVIDERS: ATTEND Internal Medicine
DX: Z12.31 Encounter for screening mammogram for malignant neoplasm of breast (principal); R92.333 Mammographic heterogeneous density, bilateral breasts; Z80.3 Family history of malignant neoplasm of breast; Z92.0 Personal history of contraception
CPT/HCPCS: 77063; 77067